=== PATIENT | female | born 1945 | race Caucasian/White ===

== ENCOUNTER → 2018-07-24 | Outpatient (CLI) | payer OTHER ==
[~2018-07-24] MED LIST: ASPIRIN81 M2 PO; CALCIUM 600 +1 EAC1 PO; FOSAMAX 70 MG T70 M1 PO; LOPRESSOR25 PO; LORTAB 5-500 T1 EAC1 PO; MULTIVITAMINS PO; PAXIL20 MG PO; PERCOCET 5-3251 EACH PO; SINUS & ALLERG1 EAC1 PO; VITAMIN B-12100 MCG PO; VITAMIN D400 UNI1 PO; VITAMINC500 PO
== END ==
LOC: RAD 11:03
DX: M51.16 Intervertebral disc disorders with radiculopathy, lumbar region (principal); M41.86 Other forms of scoliosis, lumbar region

== ENCOUNTER → 2018-08-02 | Outpatient (CLI) | payer OTHER | LOC: MRI 09:32 | DX: M51.16 Intervertebral disc disorders with radiculopathy, lumbar region (principal); M48.061 Spinal stenosis, lumbar region without neurogenic claudication; M43.8X6 Other specified deforming dorsopathies, lumbar region; M51.46 Schmorl's nodes, lumbar region; M12.88 Other specific arthropathies, not elsewhere classified, other specified site; M51.25 Other intervertebral disc displacement, thoracolumbar region ==

== ENCOUNTER → 2018-08-14 | Outpatient (CLI) | payer OTHER ==
[~2018-08-14] VITALS: Ht 172.7 cm; Wt 67.1 kg
[~2018-08-14] MED LIST changes: +ALEVE220 MG PO; +ALLERGY10 MG PO; +ASPIR 8181 MG PO; +CALCIUM 600 +1 EAC8 PO; +MAGOX 400400 MG PO; +PROLIA60 MG/1 ML SUBQ; +RESVERATROL250 MG PO; +VITAMIN D5000 UNIT PO
--- NOTE | ~2018-08-14 | HPC ---
[facility] [address] [place] [address] PAIN MANAGEMENT CONSULTATION Name: THONG DICKERSON Room #: REG [facility].#: [id number] Admission: 08/14/18 ������������������ Attend Phys: Nima Mace DO Discharge: ������������������ Date of : 43 Report #: [id number] THIS REPORT FOR: //name// CC: Nima Douglas MD DATE OF SERVICE: 08/14/2018 CHIEF COMPLAINT: Low back pain, bilateral lower extremity pain with paresthesias. HISTORY OF PRESENT ILLNESS: As you know, the patient is a 73-year-old female who has been referred to our service for a discussion of treatment options for possible lumbar radiculopathy. The patient shows central canal stenosis at the L3-L4 level and again at the L4-L5 level concerning for the source of her lumbar radiculopathy. The patient has trialed conservative treatment options with Dr. Thierno Douglas including home stretching exercises, [id number]-[id number] medications, all of which have unfortunately failed. She returns to discuss ongoing treatment options with Dr. Douglas, who then referred the patient out for MRI of the lumbar spine. Imaging showed changes at the L3-L4 and L4-L5 level for which the patient was then referred to our clinic. The patient today reports pain is periodic, describes pain as shooting, aching, stabbing, numbness, and intermittent tingling. Places current pain score 4/10, daily average of 5/10, worst pain has been is 9/10. The patient states the pain is exacerbated with sitting on soft cushions or standing for any length of time. Improves with [id number] Aleve. She indicates pain began about 6 months ago. No injury or trauma. The pain has progressively worsened. She has been referred to our service to discuss treatment options for suspected lumbar radiculopathy. PAST MEDICAL HISTORY: 1. History of scarlet fever. 2. Anemia. 3. Chronic stomach problems. 4. History of lung cancer. 5. Osteoporosis. PAST SURGICAL HISTORY: Lobectomy. SOCIAL HISTORY: The patient denies current tobacco use. Denies IV or illicit drug use. Admits to occasional alcohol beverage. She is retired, retired about 6 months ago, not receiving workmen's compensation nor is trying to obtain disability benefits. Unaccompanied today. [facility] [address] [place] [address] PAIN MANAGEMENT CONSULTATION Name: THONG DICKERSON Room #: REG [facility] Supa.#: [id number] Admission: 08/14/18 ������������������ Attend Phys: Nima Mace DO Discharge: ������������������ Date of : 43 Report #: [id number] REVIEW OF SYSTEMS: Positive for wearing corrective eyewear, mouth sores, shortness of breath walking or lying flat, painful bowel movements with constipation, frequent urination, nocturia, numbness and tingling sensations, insomnia, heat and cold intolerance, anemia. All other review of systems negative per 12-point review of systems other than those listed in history of present illness. Pain impact score of 15 of 70 indicating mild interference of daily activities secondary to pain. IMAGING: MRI lumbar spine obtained 08/02/2018 shows L1-L2 essentially unremarkable, L2-L3 mild degenerative disk disease, small broad-based disk bulge, mildly effacing ventral thecal sac. No central canal stenosis, left-sided facet arthropathy causing mild left neural foraminal stenosis L3-L4, mild degenerative disease of the disk, moderate circumferential disk bulge, moderate bilateral facet arthropathy, ligamentum flavum hypertrophy causing moderate central canal stenosis, mild bilateral neural foraminal stenosis. L4-L5 broad-based disk bulge, moderate in size, left foraminal component with small annular tear effacing the ventral thecal sac, also causing moderate bilateral facet arthropathy, ligamentum flavum hypertrophy leading to moderate central canal stenosis L5-S1 unremarkable. PQRS: 1. The patient has known osteoarthritic changes of the lumbar spine, bilateral hips and hands. No rheumatoid arthritis. She is placing pain intensity 4/10. She is not at a fall risk, has not had fallen in the last 3 months. 2. She is not on blood thinners, nor she is treated for hypertension. 3. She is not on any chronic opioid. She has a low opiate addiction potential. 4. Pain impact score 15/70 indicating mild interference of daily activities secondary to pain. ALLERGIES: CODEINE. CURRENT MEDICATIONS: Naproxen 220 mg t.i.d., Prolia 60 mg injectable, loratadine 10 mg per day, resveratrol 250 mg once a day, aspirin 81 mg per day, calcium carbonate 1 tab per day, magnesium oxide 400 mg once a day, ascorbic acid 500 mg once a day, cholecalciferol 5000 units once a daily, multivitamin 1 tab per day, and Paxil 20 mg once a day. PHYSICAL EXAMINATION: VITAL SIGNS: Blood pressure is a 117/66, pulse 75, respiratory rate 14 and unlabored. The patient is 99% on room air. Height 5 feet 8 inches tall, weight 148 pounds, BMI calculated 22.5. GENERAL: Well-developed, well-nourished, well-hydrated 73-year-old female appearing her stated age, placing current pain score at 4/10. [address] [address] PAIN MANAGEMENT CONSULTATION Name: THONG DICKERSON Room #: REG [facility]#: [id number] Admission: 08/14/18 ������������������ Attend Phys: Nima Mace DO Discharge: ������������������ Date of : 43 Report #: [id number] HEENT: Normocephalic, atraumatic. Pupils equal, round, reactive to light. Extraocular muscles are intact. Sclerae nonicteric without injection. NEUROLOGIC: Cranial nerves II through XII grossly intact. Speech fluent. The patient deemed a good historian. LUNGS: Clear. No wheeze, rhonchi, or rales. CARDIOVASCULAR: Regular. No appreciable gallop, no rub. ABDOMEN: Soft, nontender, nondistended, normal active bowel sounds. EXTREMITIES: Show no clubbing, no cyanosis, and no edema. MUSCULOSKELETAL: Lower extremity strength equal and symmetrical 5/5. Muscle bulk and tone equal and symmetrical. There is mild deconditioning. Seated straight leg raising negative. Supine straight leg raising mildly positive, more on left than right. Omar's test negative. Modified Gaenslen's positive for axial low back pain. Ankle clonus negative. Babinski is negative. Gait mildly antalgic. Stance slightly forward flexed lumbar spine. ASSESSMENT: 1. Symptomatic lumbar radiculopathy. 2. Spinal stenosis of lumbar spine. 3. Displacement of lumbar intervertebral disk with radiculopathy. 4. Lumbosacral spondylosis with radiculopathy. 5. Facet arthropathy of the lumbar spine. 6. Neural foraminal stenosis of lumbar spine. 7. Chronic intractable pain. PLAN: 1. Based on today's physical exam and history the patient has provided, the description the patient uses in regards to pain as well as location of symptoms, the likely source of the patient's pain is lumbar radiculopathy. It does appear the patient is suffering from central canal stenosis symptoms given the bilateral nature of pain today. We discussed with the patient the treatment options available for lumbar radiculopathy secondary to spinal stenosis. Following was discussed today. We discussed physical therapy, stretching exercise, core strengthening as a treatment course. We discussed medication management utilizing neuropathic pain medications on a consistent nonsteroidal anti-inflammatory. We also discussed the epidural injection for which the patient was referred to our clinic, spinal cord stimulator therapy and ultimately surgical options. After reviewing the risks and benefits of all proposed treatment options, the patient chose to undergo lumbar epidural injection under fluoroscopic guidance. 2. The patient was advised risks and benefits of a lumbar epidural injection. These risks include but are not necessarily limited to bleeding, bruising, infection, worsening pain, no relief of pain, also risk of temporary or permanent muscle weakness, temporary or permanent nerve damage, possible paralysis, post-dural puncture headache and . The patient states understood and wished to proceed. [address] [address] PAIN MANAGEMENT CONSULTATION Name: THONG DICKERSON [facility] [id number] Admission: 08/14/18 ������������������ Attend Phys: Nima Mace DO Discharge: ������������������ Date of : 43 Report #: [id number] 3. No medication changes made at today's visit. The patient will continue current medical therapy as previously prescribed. 4. We will see the patient back in followup visit 09/11/2018 at 9:00 a.m. for possible next in the series of lumbar epidural injections. 5. I wish to thank Dr. Thierno Douglas for the referral of the patient to our clinic. We will keep you apprised of her response to treatment as we address her lumbar radicular symptoms. Again, we wish to thank Dr. Douglas for the referral of the patient. DESCRIPTION OF PROCEDURE: L5-S1 interlaminar epidural steroid injection under fluoroscopic guidance. This is the first procedure of the first series that the patient is undergoing. After obtaining written consent, the patient was taken back to the fluoroscopy suite, placed in a prone position with pillow under the abdomen to decrease lumbar lordosis. The skin overlying the lumbosacral area was then prepped and draped in aseptic fashion. The L5-S1 vertebral interspace was then identified by AP fluoroscopy. The skin and subcutaneous tissue overlying the target site of injection was anesthetized with 3 mL 1% lidocaine. A 20-gauge 3-1/2 inch Tuohy needle was then advanced under fluoroscopic guidance towards the epidural space using a right parasagittal approach. The epidural space was identified using loss of resistance to air technique. After negative aspiration for heme or cerebrospinal fluid, a total of 1 mL of Omnipaque was injected. A lumbar epidurogram was confirmed using both AP and lateral fluoroscopy. After negative aspiration for heme or cerebrospinal fluid, 5 mL of solution containing 2 mL 40 mg per mL, 80 mg total triamcinolone, 3 mL of lidocaine 1% was injected in increments. Contrast spread was noted posterior epidural space. The needle was then retracted approximately half way and needle tract flushed with 1 mL of lidocaine. Needle was then removed. There were no apparent sensory or motor deficits in the lower extremity following the procedure. A sterile bandage was placed over the injection site. The heart rate, pulse, oximetry and blood pressure were continuously monitored after the procedure. There were no apparent complications. The patient tolerated the procedure well and was carefully escorted to the recovery room in stable condition. There were no apparent complications. After meeting discharge criteria, the patient was then discharged home. ��������������������������������������������� ���������������������������������������� By: ��������������������������������������������� [id number] Nima Mace DO /marie
[2018-08-14 09:25] VITALS: BP 117/66
--- NOTE | 2018-08-14 09:55 | NUR ---
Pain Clinic Assessment: 1. History of Osteoarthritis: BACK History of Rheumatoid Arthritis: Not Applicable 2. Height: 5 ft. 8 in. 172.7 cm. Weight: 148.0 lb. oz. 67.132 kg. Patient's BMI: 22.5 3. Vital Signs: BP: 117/66 Pulse: 75 Resp: 14 Temp: 02 Sat: 99 ECG Mon: 4. Pain Intensity: 4 5. Fall Risk: Dizziness: N Needs help standing or walking: N Fallen in the last 3 months: N Fall risk comments: 6. Patient on Blood Thinner: None 7. History of Hypertension: N 8. Opioid Therapy greater than 6 weeks: N Opiate Contract Signed: 9. Risk Assessment Tool Provided: LOW-1 10. Functional Assessment Tool: 11. Recreational Drug Use: Never Drug Type: Tobacco Use: Former Smoker Tobacco Type: Amount or Packs/day: How Many Years: Alcohol Use: Yes Frequency: Weekly Quant: 1-2
== END | disposition home or self-care (01) ==
LOC: PAIN 06:46
DX: M51.16 Intervertebral disc disorders with radiculopathy, lumbar region (principal); M47.27 Other spondylosis with radiculopathy, lumbosacral region; M47.26 Other spondylosis with radiculopathy, lumbar region; M48.061 Spinal stenosis, lumbar region without neurogenic claudication; G89.29 Other chronic pain; D64.9 Anemia, unspecified; K92.9 Disease of digestive system, unspecified; M81.0 Age-related osteoporosis without current pathological fracture; Z85.118 Personal history of other malignant neoplasm of bronchus and lung; Z98.890 Other specified postprocedural states; Z88.6 Allergy status to analgesic agent; Z79.82 Long term (current) use of aspirin; Z79.899 Other long term (current) drug therapy

== ENCOUNTER → 2018-10-16 | Outpatient (CLI) | payer OTHER ==
[~2018-10-16] VITALS: Ht 172.7 cm; Wt 65.8 kg
[~2018-10-16] MED LIST changes: +LIORESAL 10 MG10 MG PO; +NAPROSYN500 MG PO; +NEURONTIN 300300 M1 PO
[2018-10-16 08:08] VITALS: BP 118/60
--- NOTE | 2018-10-16 08:14 | NUR ---
Pain Clinic Assessment: 1. History of Osteoarthritis: BACK History of Rheumatoid Arthritis: Not Applicable 2. Height: 5 ft. 8 in. 172.7 cm. Weight: 145.0 lb. oz. 65.772 kg. Patient's BMI: 22.1 3. Vital Signs: BP: 118/60 Pulse: 88 Resp: 16 Temp: 02 Sat: 97 ECG Mon: 4. Pain Intensity: 5 5. Fall Risk: Dizziness: N Needs help standing or walking: N Fallen in the last 3 months: N Fall risk comments: 6. Patient on Blood Thinner: None 7. History of Hypertension: N 8. Opioid Therapy greater than 6 weeks: N Opiate Contract Signed: 9. Risk Assessment Tool Provided: LOW-1 10. Functional Assessment Tool: 11. Recreational Drug Use: Never Drug Type: Tobacco Use: Former Smoker Tobacco Type: Amount or Packs/day: How Many Years: Alcohol Use: Yes Frequency: Quant:
--- NOTE | 2018-10-22 09:09 | HPC ---
[facility] [address] [place] [address] PAIN MANAGEMENT CONSULTATION Name: THONG DICKERSON Room #: REG [facility].#: [id number] Admission: 10/16/18 Attend Phys: Nima Mace DO Discharge: Date of : 43 Report #: [id number] THIS REPORT FOR: //name// CC: RUTH Mace MARIELOS BOX Marielos Box DATE OF SERVICE: 10/16/2018 REFERRING PHYSICIAN: Dr. Aguilar CHIEF COMPLAINT: Low back pain, lower extremity pain with paresthesias, left greater than right. HISTORY OF PRESENT ILLNESS: As you know, the patient is a very pleasant 73-year-old female returning in followup visit to undergo the third in the series of epidural injections. The patient reports improvement of 75% with a previous epidural injection. Unfortunately, her symptoms have begun to return. She places pain today at around 5/10. States the pain is aching, shooting, constant numbness and tingling; exacerbated with sitting, standing, walking, improves with medications, epidural injections and the use of baclofen and zufp-ugv-qzgxusa Aleve. She returns today in followup visit to undergo the third in series of epidural injections to build on success of previous intervention. She denies injury or trauma. ALLERGIES: CODEINE. CURRENT MEDICATIONS: Naproxen, baclofen, Prolia, loratadine, aspirin, calcium carbonate, magnesium, ascorbic acid, cholecalciferol, paroxetine and multivitamin. SOCIAL HISTORY: The patient denies tobacco, alcohol, IV or illicit drug use. She is retired. She is unaccompanied today. IMAGING: No new imaging available. PQRS: The patient has known arthritic change of the lumbar spine, bilateral hips, no rheumatoid arthritis. She is placing pain today at around 5/10, not a fall risk, has not had a fall in last 3 months. She is not on blood thinners nor she is treated for hypertension. She is not a risk for opioid addiction. She has a low addiction potential. She is placing pain impact score at 25/70 indicating moderate interference of daily activities secondary to pain. PHYSICAL EXAMINATION: VITAL SIGNS: Blood pressure 118/60, pulse 88, respiratory rate [address] [facility] [address] [place] [address] PAIN MANAGEMENT CONSULTATION Name: THONG DICKERSON Room #: [facility]#: [id number] Admission: 10/16/18 Attend Phys: Nima Mace DO Discharge: Date of : 43 Report #: [id number] unlabored. The patient is 97% on room air. Height 5 feet 8 inches tall, weight 145 pounds, BMI calculated 22.1. GENERAL: Well-developed, well-nourished, well-hydrated 73-year-old female appearing stated age, pain is rated today 5/10. HEENT: Normocephalic, atraumatic. Pupils equal, round, reactive to light. EXTREMITIES: Show no clubbing, no cyanosis, and no edema. MUSCULOSKELETAL: Lower extremity strength appears symmetrical 5/5, intact to light touch from L1 through S2 dermatomes. Seated straight leg raising is negative today. Supine straight leg raising positive on the left. Omar's test negative. Modified Gaenslen's positive for axial low back pain. ASSESSMENT: 1. Symptomatic lumbar radiculopathy. 2. Displacement of lumbar intervertebral disk with radiculopathy. 3. Central canal stenosis of the lumbar spine. 4. Lumbosacral spondylosis with radiculopathy. 5. Neural foraminal stenosis of the lumbar spine. 6. Chronic intractable pain. PLAN: 1. The patient returns today in followup visit, prepared to undergo next in the series of epidural injections to build on success of previous intervention. The patient reported 75% improvement in overall pain with previous epidural injection. Unfortunately, her symptoms have begun to return. She returns to undergo the third in the series of epidural injections. She has been advised risks and benefits of procedure, states understood and wished to proceed. 2. We did discuss the gabapentin that was started by Dr. Aguilar. We agree with the dosing regimen. We are hopeful the patient will see improvement in symptoms from a neuropathic standpoint. She will watch for side effects with the medication including somnolence, decreased mental acuity, disorientation and confusion. 3. We will see the patient back in followup visit on an as needed basis for possible next in the series of epidural injections or discuss other options for treatment. PROCEDURE NOTE DESCRIPTION OF PROCEDURE: L5-S1 left paramedian epidural steroid injection under fluoroscopic guidance. This is the third procedure of the first series that the patient is undergoing. After obtaining written consent, the patient was taken back to the fluoroscopy suite, placed in a prone position with pillow under the abdomen to decrease lumbar lordosis. The skin overlying the lumbosacral area was then prepped and draped in aseptic fashion. The L5-S1 vertebral interspace was then identified [address] [address] PAIN MANAGEMENT CONSULTATION Name: THONG DICEKRSON [id number] Admission: 10/16/18 Attend Phys: Nima Mace DO Discharge: Date of : 43 Report #: [id number] by AP fluoroscopy. The skin and subcutaneous tissue overlying the target site of injection was anesthetized with 3 mL 1% lidocaine. A 20-gauge 3.5-inch Tuohy needle was then advanced under fluoroscopic guidance towards the epidural space using a left paramedian approach. The epidural space was identified using loss of resistance to air technique. After negative aspiration for heme or cerebrospinal fluid, a total of 1 mL of Omnipaque was injected. A lumbar epidurogram was confirmed using both AP and lateral fluoroscopy. After negative aspiration for heme or cerebrospinal fluid, 5 mL of a solution containing 2 mL, 40 mg per mL, 80 mg total triamcinolone and 3 mL lidocaine 1% was injected in increments. Contrast spread was noted posterior epidural space. The needle was then retracted approximately half way and needle tract flushed with 1 mL of lidocaine. Needle was then removed. There were no apparent sensory or motor deficits in the lower extremity following the procedure. A sterile bandage was placed over the injection site. The heart rate, pulse, oximetry and blood pressure were continuously monitored after the procedure. There were no apparent complications. The patient tolerated the procedure well and was carefully escorted to the recovery room in stable condition. There were no apparent complications. After meeting discharge criteria, the patient was then discharged home. <ELECTRONICALLY SIGNED> By: Nima Mace DO 10/22/18 [id number] Nima Mace, DO /nt
== END | disposition home or self-care (01) ==
LOC: PAIN 06:45
DX: M51.16 Intervertebral disc disorders with radiculopathy, lumbar region (principal); M48.061 Spinal stenosis, lumbar region without neurogenic claudication; M47.27 Other spondylosis with radiculopathy, lumbosacral region; M99.73 Connective tissue and disc stenosis of intervertebral foramina of lumbar region; G89.29 Other chronic pain; Z88.8 Allergy status to other drugs, medicaments and biological substances; Z79.899 Other long term (current) drug therapy; Z79.82 Long term (current) use of aspirin; Z87.891 Personal history of nicotine dependence

== ENCOUNTER → 2019-02-13 | Outpatient (CLI) | payer OTHER | LOC: RAD 14:28 | DX: J44.9 Chronic obstructive pulmonary disease, unspecified (principal); Z98.890 Other specified postprocedural states ==

== ENCOUNTER → 2019-03-11 | Outpatient (CLI) | payer OTHER | LOC: SJCVCIMAG 10:36 | DX: R07.9 Chest pain, unspecified (principal); R06.09 Other forms of dyspnea; J44.9 Chronic obstructive pulmonary disease, unspecified; Z87.891 Personal history of nicotine dependence ==

== ENCOUNTER → 2019-03-11 | Outpatient (CLI) | payer OTHER | LOC: CV 11:41 → EDSTATUS 21:57 | DX: R07.9 Chest pain, unspecified (principal); I48.91 Unspecified atrial fibrillation; I73.9 Peripheral vascular disease, unspecified; Z87.891 Personal history of nicotine dependence; Z79.899 Other long term (current) drug therapy ==

== ENCOUNTER → 2020-02-17 | Outpatient (CLI) | payer OTHER ==
[~2020-02-17] VITALS: Ht 172.7 cm; Wt 65.6 kg
[~2020-02-17] MED LIST changes: +MEDROLDOSEPACK PO; +NEURONTIN300 MG PO
[2020-02-17 08:01] VITALS: BP 117/67
--- NOTE | 2020-02-17 08:11 | NUR ---
Pain Clinic Assessment: 1. History of Osteoarthritis: BACK History of Rheumatoid Arthritis: Not Applicable 2. Height: 5 ft. 8 in. 172.7 cm. Weight: 144.6 lb. oz. 65.590 kg. Patient's BMI: 22.0 3. Vital Signs: BP: 117/67 Pulse: 84 Resp: 18 Temp: 02 Sat: 99 ECG Mon: 4. Pain Intensity: 4 5. Fall Risk: Dizziness: N Needs help standing or walking: N Fallen in the last 3 months: N Fall risk comments: 6. Patient on Blood Thinner: None 7. History of Hypertension: N 8. Opioid Therapy greater than 6 weeks: N Opiate Contract Signed: 9. Risk Assessment Tool Provided: LOW-1 10. Functional Assessment Tool: 11. Recreational Drug Use: Never Drug Type: Tobacco Use: Former Smoker Tobacco Type: Amount or Packs/day: How Many Years: Alcohol Use: Yes Frequency: Special Occasions Quant: 2
--- NOTE | 2020-02-18 11:20 | HPC ---
[facility] [place] [address] PAIN MANAGEMENT CONSULTATION Name: THONG DICKERSON Room #: [facility].#: [id number] Admission: 02/17/20 Attend Phys: Nima Mace DO Discharge: Date of : 43 Report #: [id number] THIS REPORT FOR: cc: Nel Rodriguez MD, Melanie MD Johnson, James E. DO ~ DATE OF SERVICE: 02/17/2020 REFERRING PHYSICIAN: Thierno Douglas MD CHIEF COMPLAINT: Low back pain, left lower extremity pain with paresthesias. HISTORY OF PRESENT ILLNESS: As you know, the patient is a very pleasant 74-year-old female who returns today in followup visit with slow and progressive recurrence of low back pain and left lower extremity pain with paresthesias. The patient was last seen in our clinic undergoing a lumbar epidural injection on 10/16/2018 with near 100% improvement in overall pain. She states that over the , she began to experience increasing low back pain, left lower extremity pain lasting for about 20-30 minutes, it resolved spontaneously and did not reoccur until 1 week ago where she was out walking on a Sunday, trying to get some exercise when she began to experience low back pain and left lower extremity symptoms, that reached a level of about 6/10. She states that over the day, the pain waxed and waned in its intensity. She contacted our clinic on Sunday morning after the symptoms did not resolve on Sunday to make an appointment to discuss options. She states that over the past week, her symptoms resolved again spontaneously. She is now placing her current pain score at approximately 4/10. She returns to discuss treatment options. She has no new imaging to review. She has reported no changes in her medical history since our last visit. We do have imaging from 2019, which shows changes typical for a 74-year-old female along with changes at the L4-L5 level that is the source of her symptoms. She returns to discuss treatment options for her recurrent pain. ALLERGIES: CODEINE. CURRENT MEDICATIONS: Naproxen 500 mg twice a day, Prolia 60 mg subcutaneous, loratadine 10 mg per day, resveratrol 250 mg once a day, aspirin 81 mg per day, calcium carbonate 1 tab per day, magnesium oxide 400 mg once a day, ascorbic acid 500 mg once a day, cholecalciferol 5000 units once a day, multivitamin 1 tab per day, Paxil 20 mg per day. SOCIAL HISTORY: The patient denies tobacco, alcohol, IV or illicit drug use. She is retired, unaccompanied at today's visit. IMAGING: No new imaging available. [address] [address] PAIN MANAGEMENT CONSULTATION Name: KATHYSUKH PIÑAKASSANDRA Ruiz Room #: [facility] Stevie.#: [id number] Admission: 02/17/20 Attend Phys: Nima Mace DO Discharge: Date of : 43 Report #: [id number] PQRS: The patient has known arthritic changes of the lumbar spine, bilateral hips and knees. No rheumatoid arthritis. She is placing current pain score at 4/10. She is not a fall risk, has not had a fall in last 3 months. She is not on blood thinners, nor she is treated for hypertension. She is not on chronic opioids, has a low opiate addiction potential. Pain impact today 20/70, mild interference of daily activities secondary to pain. PHYSICAL EXAMINATION: VITAL SIGNS: Blood pressure 117/67, pulse 84, respiratory rate 18 and unlabored. The patient is 99% on room air. Height 5 feet 8 inches tall, weight 144.6 pounds, BMI calculated 22.0. GENERAL: Well-developed, well-nourished, well-hydrated 74-year-old female, appearing stated age, pain is rated today 4/10. HEENT: Normocephalic, atraumatic. Pupils equal, round and reactive. Speech fluent. EXTREMITIES: Show no clubbing, no cyanosis, no edema. MUSCULOSKELETAL: Lower extremity strength equal and symmetrical 5/5, intact to light touch from L1 through S2 dermatomes. Seated straight leg raising is mildly positive on the left, negative right. Supine straight leg raising positive on the left, negative right. Omar's test negative. Modified Gaenslen's positive for axial low back pain. Gait appears normal. Stance normal. ASSESSMENT: 1. Symptomatic lumbar radiculopathy. 2. Displacement of lumbar intervertebral disk with radiculopathy. 3. Central canal stenosis of lumbar spine. 4. Lumbosacral spondylosis with radiculopathy. 5. Neural foraminal stenosis of lumbar spine. 6. Chronic intractable pain. PLAN: 1. The patient returns today in followup visit with slowly recurrent lumbar radicular symptoms. She has done very well with an epidural injection provided in 10/2018. She had been doing well until just Thanksgi of this year when she began to experience pain radiating from the low back down the left leg that presented spontaneously and resolved spontaneously. She had reoccurrence of symptoms again 1 week ago while doing a walk consistent with lumbar radiculopathy, likely her symptoms did spontaneously resolve after a 2-day period. She returns today in followup visit to discuss treatment options. Following was discussed with the patient on treatment options today. We discussed physical therapy, stretching exercises, core strengthening for which she is continuing to do at home from previous formalized physical therapy sessions. We discussed medication management adding neuropathic pain medications and possible low-dose opioid for pain control if her symptoms become intense. We discussed lumbar epidural injections for which the patient received [facility] [address] [place] [address] PAIN MANAGEMENT CONSULTATION Name: THONG DICKERSON Room #: [facility].#: [id number] Admission: 02/17/20 Attend Phys: Nima Mace DO Discharge: Date of : 43 Report #: [id number] excellent benefit in the past. We also discussed surgical options with the patient. After reviewing risks and benefits of all proposed treatment options, the patient chose to begin with medication management. 2. The patient was provided a prescription of gabapentin 300 mg dose 1 tab p.o. at bedtime for 3 nights, increase to 2 tabs p.o. at bedtime for 3 nights, if no improvement in symptoms, no side effects of sleepiness, disorientation, confusion, mental slowing, then increase to 3 tabs or 900 mg p.o. at bedtime. I have given the patient #90 tablets. I did advise the patient any time during the titration, she notes improvement in symptoms, stabilize at that dose, no further escalation. Prescription was provided to the patient in written form and sent via e-scribe to local pharmacy. 3. The patient was provided a Medrol Dosepak for pain if her symptoms intensified, she is unable to be seen to undergo an epidural injection. The patient was advised to utilize a Medrol Dosepak only if necessary. She is not to rely on the medication prophylactically. I have advised the patient that if she does initiate the Medrol Dosepak to contact our clinic, so we are apprised of her use and we can determine efficacy. 4. The patient was provided a short dosing of Percocet. We discussed the possibility of trialing tramadol, but the patient stated she had sensitivities to the medication. We also suggested a possible low-dose hydrocodone, again the patient reported sensitivities. We will start her on Percocet 5/325 one tab p.o. q. 8 hours p.r.n. for pain. I have given the patient #30 tablets. I advised the patient to take the medication only when necessary. She is not to rely on the medication prophylactically. This is not a long-term treatment option for the patient. We will need to rotate medications if therapy is required to continue. Opioid medications have minimal benefit for lumbar radiculopathy. 5. We will see the patient back in followup visit on an as needed basis for possible epidural injection. Otherwise, we will see her back for medication management in 1 month. <ELECTRONICALLY SIGNED> By: Nima Mace DO 02/18/20 [id number] Nima Mace DO /nt
== END ==
LOC: PAIN 06:44
PROVIDERS: ATTEND Anesthesiology Pain Medicine
DX: M51.16 Intervertebral disc disorders with radiculopathy, lumbar region (principal); M48.061 Spinal stenosis, lumbar region without neurogenic claudication; M47.27 Other spondylosis with radiculopathy, lumbosacral region; G89.4 Chronic pain syndrome; Z79.891 Long term (current) use of opiate analgesic

== ENCOUNTER → 2021-03-09 | Outpatient (CLI) | payer OTHER | LOC: CAT 08:58 | DX: Z12.2 Encounter for screening for malignant neoplasm of respiratory organs (principal); R91.8 Other nonspecific abnormal finding of lung field; J92.9 Pleural plaque without asbestos; Z87.891 Personal history of nicotine dependence ==